=== PATIENT | female | born 1940 | race Caucasian/White ===

== ENCOUNTER 2020-08-16 14:55 | Outpatient (CLI) | payer OTHER ==
[~2020-08-16 14:55] MED LIST: CEFEPIME HCL2 G/VIAL IV; COUMADIN2.5 MG
== END 2020-08-16 15:30 | disposition home or self-care (01) ==
LOC: OFIC 805 14:55
PROVIDERS: ATTEND Otolaryngology
DX: H90.3 Sensorineural hearing loss, bilateral (principal); H61.23 Impacted cerumen, bilateral; H81.13 Benign paroxysmal vertigo, bilateral

== ENCOUNTER → 2020-08-27 | Outpatient (CLI) | payer OTHER | END | disposition home or self-care (01) | LOC: OFIC 805 12:00 | PROVIDERS: ATTEND Otolaryngology | DX: R42 Dizziness and giddiness (principal); H90.3 Sensorineural hearing loss, bilateral; H61.21 Impacted cerumen, right ear ==

== ENCOUNTER → 2020-09-27 | Outpatient (CLI) | payer OTHER | END | disposition home or self-care (01) | LOC: OFIC 805 13:00 | PROVIDERS: ATTEND Otolaryngology | DX: Q17.8 Other specified congenital malformations of ear (principal); H90.3 Sensorineural hearing loss, bilateral ==